=== PATIENT | male | born 1970 | race Caucasian/White ===

== ENCOUNTER 2018-01-01 19:59 | Emergency (ER) | payer OTHER ==
[2018-01-01 21:09] LABS: ABS Basophils 0.1 10^3/ul (0-0.2); ABS Eosinophils 0.3 10^3/ul (0-0.6); ABS Lymphocytes 2.1 10^3/ul (1.0-4.8); ABS Neutrophils 7.7 10^3/ul (1.5-7.7); ABS Nucleated RBC 0 10^3/ul; Eosinophil % 2.5 % (0-6); Hematocrit 44 % (42-52); Hemoglobin 15.3 g/dl (14.0-18.0); Mean Corpuscular HGB Conc 35 g/dl (31-36); Mean Corpuscular Hemoglobin 31 pg (27-31); Mean Corpuscular Volume 89 fL (80-94); Nucleated Red Blood Cells % 0; Platelet Count 233 10^3/ul (150-450); Red Blood Count 4.92 10^6/ul (4.00-5.40); Red Cell Distribution Width 13 % (10.5-15); White Blood Count 11.2 10^3/ul (3.5-10.8)
[2018-01-01 21:26] LABS: EGFR Non-African American 74.9 (>60)
[2018-01-01 21:48] LABS: Urine Appearance Cloudy; Urine Blood 2+ (Negative); Urine Color Yellow; Urine Ketones Trace (Negative); Urine Protein Negative (Negative); Urine Specific Gravity 1.017 (1.010-1.030); Urine Urobilinogen Negative (Negative)
--- NOTE | 2018-01-02 01:08 | ED ---
Kenzie Deluna Jade, scribed for Hector Thurston on 01/01/18 at 2118 . Psychiatric Complaint - HPI Summary HPI Summary: Pt is a 47 y/o male who presents to the ED c/o depression for 2 weeks. He recently moved to [place], and his landlord is kicking him out because he has children. Pt states he cant make eye contact due to a sensory overload. He denies any SI or HI, and states that he wants help. He states he recently started to see a therapist 8 months ago for his depression. Pt also c/o 4/10 neck pain that feels like a snake bite. Pt denies any PMHx of schizophrenia or bipolar disorder. He denies any alcohol or smoking, but did smoke marijuana today to help with the sensory overload. Pt is accompanied by his family. He has a prior history of suicide attempt and heroin addiction. - History Of Current Complaint Chief Complaint: [facility] Time Seen by Provider: 01/01/18 20:35 Hx Obtained From: Patient Onset/Duration: Gradual Onset, Lasting Weeks - 2, Still Present Timing: Constant Character: Depressed Aggravating Factor(s): Recent Stress Alleviating Factor(s): Nothing Related History: Positive For: Prior Psychiatric Issues Has Suicidal: Reports: Has Prior Attempt(s) - 2 - heroin OD, hanging. Denies: Thoughts Has Homicidal: Denies: Thoughts Ingestion History: Type/Name Of Drug - Marijuana, Approximate Time Of Ingestion - Today - Allergies/Home Medications Allergies/Adverse Reactions: Allergies Allergy/AdvReac Type Severity Reaction Status Date / Time lactase [From D[employer]] Allergy Hives Verified 01/01/18 20:06 Home Medications: Home Medications NK [No Home Medications Reported] 01/01/18 [History Confirmed 01/01/18] PMH/Surg Hx/FS Hx/Imm Hx Endocrine/Hematology History: Denies: Hx Diabetes Cardiovascular History: Denies: Hx Hypertension GI History: Reports: Other GI Disorders - Hernia Psychiatric History: Reports: Hx Depression, Hx Suicide Attempt - 2x, Hx Substance Abuse - Heroin - Immunization History Immunizations Up to Date: Yes Infectious Disease History: No Infectious Disease History: Denies: Traveled Outside the [place] in Last 30 Days - Family History Known Family History: Negative: Other - Psychiatric disorders - Social History Alcohol Use: None Substance Use Type: Reports: Marijuana Substance Use Comment - Amount & Last Used: small amt 2-3 hours ago Smoking Status (MU): Former Smoker Review of Systems Positive: Myalgia - Neck pain Positive: Depressed All Other Systems Reviewed And Are Negative: Yes Physical Exam - Summary Physical Exam Summary: Appearance: Well appearing, no pain distress. Depressed affect. Skin: warm, dry, reflects adequate perfusion Head/face: normal Eyes: EOMI, LUIS ENT: normal Neck: supple, non-tender Respiratory: CTA, breath sounds present Cardiovascular: RRR, pulses symmetrical Abdomen: non-tender, soft Bowel: present Musculoskeletal: normal, strength/ROM intact Neuro: normal, sensory motor intact, A&Ox3 Triage Information Reviewed: Yes Vital Signs On Initial Exam: Initial Vitals Temp Pulse Resp BP Pulse Ox 99 F 90 18 155/90 99 01/01/18 20:01 01/01/18 20:01 01/01/18 20:01 01/01/18 20:01 01/01/18 20:01 Vital Signs Reviewed: Yes Diagnostics - Vital Signs Vital Signs Temp Pulse Resp BP Pulse Ox 01/01/18 20:01 99 F 90 18 155/90 99 - Laboratory Lab Results: Lab Results 01/01/18 Range/Units 21:00 WBC 11.2 H (3.5-10.8) 10^3/ul RBC 4.92 (4.00-5.40) 10^6/ul Hgb 15.3 (14.0-18.0) g/dl Hct 44 (42-52) % MCV 89 (80-94) fL MCH 31 (27-31) pg MCHC 35 (31-36) g/dl RDW 13 (10.5-15) % Plt Count 233 (150-450) 10^3/ul MPV 8.0 (7.4-10.4) um3 Neut % (Auto) 68.8 (38-83) % Lymph % (Auto) 19.0 L (25-47) % [facility] % (Auto) 9.2 H (0-7) % Eos % (Auto) 2.5 (0-6) % Baso % (Auto) 0.5 (0-2) % Absolute Neuts (auto) 7.7 (1.5-7.7) 10^3/ul Absolute Lymphs (auto) 2.1 (1.0-4.8) 10^3/ul Absolute Monos (auto) 1.0 H (0-0.8) 10^3/ul Absolute Eos (auto) 0.3 (0-0.6) 10^3/ul Absolute Basos (auto) 0.1 (0-0.2) 10^3/ul Absolute Nucleated RBC 0 10^3/ul Nucleated RBC % 0 Result Diagrams: 01/01/18 21:00 01/01/18 21:00 Lab Statement: Any lab studies that have been ordered have been reviewed, and results considered in the medical decision making process. Course/Dx - Course Course Of Treatment: Pt is a 47 y/o male c/o depression, with a PMHx of prior suicide attempts and heroin addiction. He denies any SI or HI, and smoked marijuana today to help with his sensory overload. A physical examination revealed depressed affect. Blood work and UA were obtained. Pt was medically cleared at 21:39. 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 Pt will be admitted to [facility], and is agreeable with the plan. - Differential Dx/Clinical Impression Differential Diagnosis/HQI/PQRI: Positive: Acute Psychosis, Anxiety, Depression Provider Diagnosis: Psychosis Discharge - Sign-Out/Discharge Documenting (check all that apply): Discharge/Admit/Transfer - Admit - Discharge Plan Condition: Stable Disposition: ADMITTED TO [facility] Referrals: [facility] PHYSICIAN REFERRAL [Outside] - 3 Days - Billing Disposition and Condition Condition: STABLE Disposition: Admitted to [facility] The documentation as recorded by the Kenzie bey Jade accurately reflects the service I personally performed and the decisions made by , Hector Thurston.
[2018-01-02 08:15] VITALS: BP 134/93
== END 2018-01-02 12:33 ==
LOC: ED 19:59
DX: F39 Unspecified mood [affective] disorder (principal); F29 Unspecified psychosis not due to a substance or known physiological condition
CPT/HCPCS: 36415; 80053; 80307; 80320; 80329; 81003; 81015; 84443; 85025; 87086; 93005; 99283; G0480